=== PATIENT | male | born 1965 | race Caucasian/White ===

== ENCOUNTER → 2017-04-16 | Outpatient (CLI) | payer BC ==
--- NOTE | 2017-04-17 08:43 | MR ---
EXAMINATION TYPE: MR knee RT wo con DATE OF EXAM: 04/16/2017 COMPARISON: NONE HISTORY: Right Knee pain x4 years TECHNIQUE: Multiplanar, multisequence imaging of the right knee is performed without IV contrast. FINDINGS: There is narrowing of the medial compartment of the knee joint with grade III chondromalaci a. Findings compatible with osteoarthritis are noted. Lateral meniscus has a normal appearance. There is grade 3 abnormal signal involving the posterior ho rn of the medial meniscus compatible with tear. Likely chronic. There is poor definition and increased signal within the posterior fibers of the proximal (femoral) a ttachment of the ACL compatible with partial tear. PCL is intact. MCL and lateral collateral ligament are intact. Small focal area of signal in the proximal tibia may represent a bone island. Patellofemoral joint demonstrates maintenance of the cartilage with a grade II chondromalacia. Trace amount of fluid within the bursa. Retinaculum intact. Quadriceps and patellar tendons intact. No sizable popliteal fossa cyst. IMPRESSION: 1. Partial tear posterior fibers proximal attachment ACL. 2. Osteoarthritis with suspected degenerative posterior horn medial meniscal tear 3. Nonspecific signal seen within the musculature particularly the lateral portion of the gastrocnemi us. This may be artifactual rather than related to myositis correlate clinically.
== END | disposition home or self-care (01) ==
LOC: RADMRIMAIN 15:12
PROVIDERS: ATTEND Orthopaedic Surgery
DX: S83.91XA Sprain of unspecified site of right knee, initial encounter (principal); M17.11 Unilateral primary osteoarthritis, right knee

== ENCOUNTER → 2017-05-14 | Outpatient (CLI) | payer BC ==
[2017-05-14 17:19] LABS: EKG EKG PERFORMED
[2017-05-14 17:24] LABS: Basophils # (A) 0.1 k/uL (0-0.2); Basophils % (A) 1 %; CH 34.6; CHCM 36.7; Eosinophils # (A) 0.1 k/uL (0-0.7); Eosinophils % (A) 1 %; HCT 41.2 % (39.0-53.0); HDW 2.66; Luc # (Auto) 0.15; Luc % (Auto) 2; Lymphocytes # (A) 2.3 k/uL (1.0-4.8); Lymphocytes % (A) 37 %; MCH 34.5 pg (25.0-35.0); MCHC 36.5 g/dL (31.0-37.0); MCV 94.5 fL (80.0-100.0); Mean Platelet Volume 8.7; Monocytes # (A) 0.4 k/uL (0-1.0); Monocytes % (A) 6 %; Neutrophils # (A) 3.4 k/uL (1.3-7.7); Neutrophils % (A) 53 %; RBC 4.36 m/uL (4.30-5.90); RDW 12.8 % (11.5-15.5); WBC 6.3 k/uL (3.8-10.6); WBC (Perox) 5.79
[2017-05-14 17:44] LABS: Anion Gap 11 mmol/L; Carbon Dioxide 27 mmol/L (22-30); Chloride 103 mmol/L (98-107); Potassium 4.2 mmol/L (3.5-5.1); Sodium 141 mmol/L (137-145)
== END | disposition home or self-care (01) ==
LOC: LABPAT 17:11
PROVIDERS: ATTEND Orthopaedic Surgery
DX: Z01.810 Encounter for preprocedural cardiovascular examination (principal); Z01.812 Encounter for preprocedural laboratory examination; M23.91 Unspecified internal derangement of right knee
CPT/HCPCS: 80051; 85025; 93005

== ENCOUNTER 2017-05-16 09:37 | Day surgery (SDC) | payer BC ==
[2017-05-13 15:46] VITALS: BMI 29.9
--- NOTE | 2017-05-16 05:10 | HP ---
Surgery is 05/16/17. Robbie Carbajal is a 51-year-old patient seen with progressive right knee pain. We discussed options. He elected to proceed with arthroscopy. Consent was obtained. PAST MEDICAL HISTORY: Noncontributory. PAST SURGICAL HISTORY: Noncontributory. Daily medications are none reported. SOCIAL HISTORY: The patient currently smokes cigarettes. PHYSICAL EVALUATION OF THE RIGHT KNEE: Range of motion 0 to 125 degrees. Tenderness along the medial joint line. Tenderness along the lateral joint line. Positive medial Edis's. Positive lateral Edis's. Ligaments are stable. Hip rotation is without pain. Distal neurovascular exam is intact. Radiographs of the right knee reveal moderate medial compartment and patellofemoral compartment osteoarthritis. An MRI of the right knee revealed a partial ACL tear as well as a medial meniscal tear. IMPRESSION: Internal derangement right knee with medial meniscal tear and partial ACL tear. PLAN: Right knee arthroscopy with partial meniscectomy and debridement. JAIME
[~2017-05-16 09:37] MED LIST: DEXAMETHASONE SOD PHOSPHATE 10 MG/ML 1 ML VIAL IV ONE; LACTATED RINGERS 1,000 ML IV SCH; LIDOCAINE 1% 20 ML VIAL (10MG/ML) FOR IV START INTRADERMA PRN; ONDANSETRON 4 MG/2 ML VIAL IVP ONE; SCOPOLAMINE 1.5MG/72HR PATCH TRANSDERM ONE; ceFAZolin 2 GM in SODIUM CHLORIDE 0.9% 100 ML IVPB ONE
[2017-05-16] MEDS ORDERED: PROPOFOL 10 MG/ML 20 ML VIAL IV ONE (10:53)
[2017-05-16] MEDS ORDERED: MIDAZOLAM 2 MG/2 ML VIAL ONE (10:53)
[2017-05-16] MEDS ORDERED: SUCCINYLCHOLINE CHLORIDE VIAL 200 MG/10 ML VIAL IV ONE (10:53)
[2017-05-16] MEDS ORDERED: KETOROLAC 30 MG/ML 1 ML VIAL ONE (10:53)
[2017-05-16] MEDS ORDERED: LIDOCAINE 1% INJ 10MG/ML (20 ML MDV) ONE (10:53)
[2017-05-16] MEDS ORDERED: fentaNYL (PF) 50 MCG/ML 2 ML AMP ONE (10:53)
[2017-05-16] MEDS ORDERED: HYDROmorphone (PF) 1 MG/ML ONE (10:53)
[2017-05-16] MEDS ORDERED: BUPIVACAINE (PF) 0.25% 30 ML VIAL INTRAARTIC ONE (10:57)
--- NOTE | 2017-05-16 11:57 | P.OP ---
Date of Procedure: 05/16/17 Preoperative Diagnosis: Internal derangement right knee Postoperative Diagnosis: 1. Tear medial and lateral meniscus right knee 2. Grade 2 chondromalacia medial femoral condyle right knee with osteochondral tear 3. Reactive synovitis medial and suprapatellar compartments right knee Procedure(s) Performed: 1. Arthroscopic partial medial and lateral meniscectomy right knee 2. Arthroscopic chondroplasty medial femoral condyle right knee 3. Arthroscopic partial synovectomy medial and suprapatellar compartments right knee Implants: Anesthesia: MERVINA, local Surgeon: Finn Westfall Estimated Blood Loss (ml): 10 Pathology: none sent Condition: stable Disposition: PACU Indications for Procedure: 51-year-old patient seen with progressive right knee pain. After treatment options were discussed, he elected to proceed with arthroscopy. Operative Findings: See description of procedure Description of Procedure: Patient was taken to the operative suite. Patient underwent a general anesthetic by the department of anesthesia. Patient was given preoperative antibiotics. The right lower extremity was placed in a well-padded arthroscopic leg rodas. The right leg was prepped and draped in the normal sterile orthopedic fashion. A lateral parapatellar and suprapatellar incision was made. Trochars were inserted. Arthroscopy was initiated. Suprapatellar pouch revealed thick reactive synovitis. The patellofemoral joint appeared to articulate congruently. There was grade 1 chondromalacia with no osteochondral tears. The scope was guided into the medial gutter. No loose bodies or plica were identified. The scope was then guided into the medial compartment. A medial parapatellar incision was made. Trocar inserted followed by probe. There was a tear posterior horn and midbody medial meniscus. There was area of grade 2 chondromalacia medial femoral condyle with osteochondral tear present. There was reactive synovitis anteriorly. I performed a partial medial meniscectomy. I performed a chondroplasty medial femoral condyle down to stable tissue. I performed a partial synovectomy. The residual meniscus was stable as was the residual osteochondral surface. Scope and probe were then guided into the intercondylar notch. Cruciates were identified, probed and found to be stable. The scope and probe were then guided into lateral compartment. There was some radial tearing of the lateral meniscus present. No significant chondromalacia, no osteochondral tears or reactive synovitis noted. I performed a partial lateral meniscectomy. The residual meniscus was stable. The scope was in guided back into the suprapatellar compartment. A motorize shaver was introduced into the super compartment. I debrided some piecemeal fragments of meniscus I encountered. I performed a partial synovectomy. The shaver was removed. We took one more look on the entire knee , no residual debris. Instruments were now removed from the joint. The joint was infiltrated with .25% Marcaine. Steri-Strips were applied to the portal sites. Sterile dressings were applied. The patient was placed into a FIONA hose. No tourniquet was utilized. The patient was awakened, transferred to a bed and taken to recovery stable satisfactory condition.
[2017-05-16 11:58] VITALS: TEMP 97.8
[2017-05-16] MEDS: HYDROmorphone 1 MG/ML 1 ML SYRINGE IVP PRN ×2 (12:20→12:28)
[2017-05-16 13:44] VITALS: RESP 18
[2017-05-16 14:07] VITALS: BP 143/78; PULSE 80
== END 2017-05-16 14:23 | disposition home or self-care (01) ==
LOC: OR 09:37
PROVIDERS: ATTEND Orthopaedic Surgery
DX: S83.241A Other tear of medial meniscus, current injury, right knee, initial encounter (principal); S83.281A Other tear of lateral meniscus, current injury, right knee, initial encounter; M94.261 Chondromalacia, right knee; M65.861 Other synovitis and tenosynovitis, right lower leg; X58.XXXA Exposure to other specified factors, initial encounter; F17.210 Nicotine dependence, cigarettes, uncomplicated; G47.33 Obstructive sleep apnea (adult) (pediatric)
CPT/HCPCS: 29880; J2250; J0330; J1100; J0690; J2405; J2001; J3010; J1885; J1170; J2704

== ENCOUNTER → 2022-09-14 | Outpatient (CLI) | payer BC ==
--- NOTE | 2022-09-14 14:07 | US ---
EXAMINATION TYPE: US venous doppler duplex UE RT DATE OF EXAM: 09/14/2022 COMPARISON: NONE CLINICAL HISTORY: R22.31 SWELLING UPPER LIMB. edema right hand, pain right arm SIDE PERFORMED: right Right Arm: no evidence of DVT IMPRESSION: No evidence of DVT at this time.
== END | disposition home or self-care (01) ==
LOC: RADUSWWP 13:25
PROVIDERS: ATTEND Family Medicine
DX: R22.31 Localized swelling, mass and lump, right upper limb (principal)